=== PATIENT | male | born 1940 | race Caucasian/White ===

== ENCOUNTER 2017-02-10 12:13 | Inpatient (IN) | payer OTHER, MEDICARE ==
--- NOTE | 2017-02-10 12:39 | CPEKG ---
Heart Rate: 73 RR Interval: 822 P-R Interval: 192 QRSD Interval: 86 QT Interval: 400 QTC Interval: 441 P [place]: 10 QRS [place]: -27 T Wave [place]: 133 EKG Severity - ABNORMAL ECG - EKG Impression: SINUS RHYTHM EKG Impression: BORDERLINE LEFT AXIS DEVIATION EKG Impression: ABNRM R PROG, CONSIDER ASMI OR LEAD PLACEMENT Electronically Signed By: Veronica Banerjee 10-Feb-2017 13:57:35
[2017-02-10 12:50] LABS: % IMMATURE GRANULYOCYTES 0.4 % (0.0-1.1); ABSOLUTE IMMATURE GRANULOCYTES 0.02 10^3/uL (0.00-0.10); ADD DIFF? NO; ADD MORPH? NO; ADD SCAN? NO; ATYPICAL LYMPHOCYTE FLAG 0 (0-99); FRAGMENT RBC FLAG 0 (0-99); HEMATOCRIT 43.8 % (40.0-51.0); HEMOGLOBIN 14.5 g/dL (13.7-17.5); LEFT SHIFT FLG 0 (0-99); LIPEMIA HEMOLYSIS FLAG 80 (0-99); MEAN CELL HEMOGLOBIN 27.6 pg (27.9-34.1); MEAN CELL HEMOGLOBIN CONCENTR. 33.1 g/dL (32.4-36.7); MEAN CELL VOLUME 83.4 fL (81.5-99.8); MEAN PLATELET VOLUME 10.4 fL (8.7-11.7); PLATELET CLUMPS FLAG 10 (0-99); PLATELET COUNT 210 10^3/uL (150-400); RED BLOOD CELL COUNT 5.25 10^6/uL (4.40-6.38); RED CELL DISTRIBUTION WIDTH 14.5 % (11.5-15.2)
[2017-02-10 13:13] LABS: ANION GAP 13 mEq/L (8-16); CALCIUM 9.6 mg/dL (8.5-10.4); CARBON DIOXIDE 19 mEq/l (22-31); CHLORIDE 105 mEq/L (97-110); CREATININE 0.8 mg/dL (0.7-1.3); GLOMERULAR FILTRATION RATE > 60; GLUCOSE 246 mg/dL (70-100); SODIUM 137 mEq/L (134-144); SPECIMEN HEMOLYSIS 111
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
--- NOTE | 2017-02-10 14:42 | CPEKG ---
Heart Rate: 71 RR Interval: 845 P-R Interval: 184 QRSD Interval: 94 QT Interval: 396 QTC Interval: 431 P [place]: 13 QRS [place]: -38 T Wave [place]: 120 EKG Severity - ABNORMAL ECG - EKG Impression: SINUS RHYTHM EKG Impression: PROBABLE INFERIOR INFARCT, OLD EKG Impression: ANTERIOR INFARCT, OLD EKG Impression: Resolution of ventricular ectopy since February 10, 2017, 14:36 Electronically Signed By: Dom Lebron 12-Feb-2017 17:48:40
[2017-02-10] MEDS ORDERED: ACETAMINOPHEN 325 MG TAB PO PRN (16:38)
[2017-02-10] MEDS ORDERED: ONDANSETRON 4 MG/2 ML VIAL IVP PRN (16:38)
[2017-02-10] MEDS ORDERED: ONDANSETRON DISINTEGRATING 4 MG TAB PO PRN (16:38)
[2017-02-10] MEDS ORDERED: D50W 25 GM/50 ML SYR IVP PRN (17:18)
[2017-02-10] MEDS: LOSARTAN/HCTZ 50/12.5 1 TAB PO SCH (17:24)
[2017-02-10] MEDS: glipiZIDE XL 5 MG TAB PO SCH (17:25)
[2017-02-10] MEDS: PIOGLITAZONE HCL 15 MG TAB PO SCH (17:25)
[2017-02-10] MEDS: ATORVASTATIN CALCIUM 20 MG TAB PO SCH (17:26)
[2017-02-10] MEDS: SOTALOL HCL 80 MG TAB PO SCH (17:26)
[2017-02-10] MEDS: ASPIRIN EC 81 MG TAB PO SCH (17:27)
[2017-02-10] MEDS ORDERED: NS 1,000 ML IV SCH (17:30)
[2017-02-10] MEDS: INSULIN LISPRO 100 UNIT/ML SC SCH (18:09)
--- NOTE | 2017-02-10 18:14 | GHP ---
[f rep st] HISTORY AND PHYSICAL DATE OF ADMISSION: 02/10/2017 HISTORY OF PRESENT ILLNESS: The patient is a pleasant 76-year-old gentleman with a history of coron jourdan disease and CABG 12 years ago, presents with a week of generalized symptoms. He states his bloo d sugar has been running 120s, higher than usual. He has felt poor with low energy. He has also no chadwick that his blood pressure has been inching up. He has not had palpitations. He checks his blood pressures and they have been higher than usual. He has been taking his medications. He has not had dietary indiscretion. He has a history of osteo myelitis of his left elbow and it has not been draining. There has been no redness or swelling. He has not had muscle aches. He has not had diarrhea, nausea or vomiting. He has had good p.o. intak e. He has not been smoking cigarettes, drinking alcohol or using drugs. He has not had falls. He has not had confusion. He is not taking over the counter medicines. He is not having typical angin al symptoms, nor is he having heart failure symptoms such as PND, orthopnea or lower extremity edema . His expressed some concern that he could have blocked bypass vessels, as his brothers all had b locked bypass vessels after 12 years or so. REVIEW OF SYSTEMS: Complete 10-point review of systems conducted was negative, except as noted in t he HPI. PAST MEDICAL HISTORY: 1. Coronary disease status post 6 vessel bypass in 2004. 2. Diabetes. 3. Postoperative atrial fibrillation, currently on sotalol. 4. Hyperlipidemia. 5. Left elbow pseudogout. 6. Left elbow infection requiring 4 weeks of antibiotics in 2012. ALLERGIES: Piroxicam. MEDICATIONS: Metformin 15 XR, glipizide, Ambien, sotalol, pioglitazone, losartan/hydrochlorothiazid e, Lantus 8 units, atorvastatin, aspirin. SOCIAL HISTORY: Lives with his in [place]. Notes minimal tobacco or alcohol. FAMILY HISTORY: Notable for coronary disease. PHYSICAL EXAM: VITAL SIGNS: Temperature 37, blood pressure 182/86, pulse 83, breathing 18 per jo te, 97% on room air. GENERAL: No acute distress. HEENT: Sclerae anicteric. Oropharynx clear. M ucous membranes are moist. NECK: Supple, without lymphadenopathy or JVD. LUNGS: Clear to auscult ation bilaterally. HEART: S1, S2. ABDOMEN: Soft, nontender, nondistended. EXTREMITIES: His low er extremities are without edema. His left upper extremity, he has evidence of prior surgeries, but there is no fluctuance, erythema, warmth or drainage. NEUROLOGIC: Nonfocal. SKIN: Without rash. LABORATORY DATA: White count 5.3, hematocrit 44, platelets are 210,000. Sodium 137, potassium is 5 , chloride is 105, bicarb is 19, BUN 27, creatinine 0.8, glucose 246. Troponin 0.016. IMAGING: Chest x-ray interpreted by me and reviewed with Dr. Ozzie Corado, shows linear atelectasis wh ich is felt to be most consistent with old scar in the left lower lobe. Otherwise, no cardiomegaly or evidence of heart failure or pneumonia. EKG is interpreted by me to show sinus at 71 with left a xis deviation, normal intervals with T-wave inversion in 1 and L, but not in V5 or V6. He received 2 EKGs here and they are similar with regard to T-wave inversion and other ST or T-wave changes. I have discussed the case Dr. Shemar Rodríguez and Dr. Ozzie Corado. ASSESSMENT AND PLAN: This is a 76-year-old gentle with coronary disease who presents with generaliz ed symptoms. 1. Weakness and fatigue with hyperglycemia. The differential is broad and includes MD, heart failu re, smoldering infection. To that end, I will check a CK to evaluate for statin toxicity. ESR to e valuate for osteomyelitis of the elbow. We will cycle his troponins and perform an echocardiogram. I will give him a liter of IV fluids for his modestly elevated BUN. 2. Coronary disease. We will cycle his troponins and perform echocardiogram. This is perhaps cons istent with heart failure, but he does not have objective signs of that now. His BNP is notably 335 with no prior for comparison. 3. Question pneumonia. I believe his chest x-ray findings are consistent with scar, not pneumonia. Will not give antibiotics. 4. Hypertension. He is hypertensive here. The neuropsychology medical consultant gave him 5 mg of amlodipine i n the emergency department. 5. Diabetes. He is hyperglycemic here. Will check a hemoglobin A1c. Will give him some lispro sl iding scale. I do believe he is clinically dry on the basis of his osmotic diuresis from his blood sugars. DISPOSITION: Inpatient status. Follow on telemetry. /[id number]/MODL
[2017-02-10 18:17] LABS: TROPONIN I < 0.012 ng/mL (0-0.034)
[2017-02-10 20:06] LABS: SEDIMENTATION RATE 7 MM/HR (0-20)
--- NOTE | 2017-02-10 22:03 | GCON ---
[f rep st] CONSULTATION REFERRING PHYSICIAN: Veronica Banerjee MD REASON FOR CONSULTATION: This is a 76-year-old patient with past medical history of insulin-dependent diabetes, coronary artery disease, status post six- vessel bypass in 2004, hypertension, who presents today after feeling poorly. HISTORY OF PRESENT ILLNESS: This 76-year-old male with past medical history of coronary artery disease, dyslipidemia, hypertension, status post bypass surgery , who comes in for evaluation of elevated blood sugar, elevated blood pressure, some fatigue and lightheadedness. The patient mentions that he has had bypass surgery in 2004. He presents today after one week of feeling poorly, with loss of blood sugar control. He also mentions that his blood pressure has been running high, and he is feeling tired and fatigued, which is very unusual for him. He has been feeling lightheaded, which is unusual for him. He notes that he does not have chest pain, but even prior to needing bypass surgery, he did not have chest pain. He denies any fever. He has chronic cough that has not changed. He denies any nausea, vomiting, abdominal pain, diarrhea. No urinary problems. 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 This had occurred in 2012. He has a chronic opening in the skin of his left elbow that occasionally drains. He has been diagnosed with pseudogout. The last time he had seen Dr. Ramirez, who is his psychiatric orderly, was in 2013 when he was cleared for back surgery. At that point in time, Dr. Ramirez noted that he does not have any arrhythmia issue or any ischemia. PAST MEDICAL HISTORY: Coronary artery disease, status post bypass surgery, with MCCULLOUGH to LAD, SVG to first diagonal, sequential SVG to ramus intermedius and first obtuse marginal, SVG to RCA, and right PDA. Last ejection fraction was checked in 2007 when it was normal, with mild anterior and lateral hypokinesis, left atrial enlargement. Last ischemia workup was in 2004 prior to his bypass surgery, which interestingly showed no evidence of stress-induced ischemia, with preserved LV function, with mild wall motion abnormality. MEDICATIONS: As per the report from 2014, Aleve, Ambien, Centrum Silver, Glucotrol, guaifenesin, hydrocodone, Lantus, low-dose aspirin, losartan, metformin, pioglitazone, simvastatin, and sotalol. Home medications today are as follows: Atorvastatin, glipizide, insulin, losartan, metformin, pioglitazone, sotalol, and Ambien. ALLERGIES: Piroxicam. SOCIAL HISTORY: Nonsmoker. No alcohol use. Retired. REVIEW OF SYSTEMS: Other than above, is negative. PHYSICAL EXAMINATION: VITAL SIGNS: Blood pressure 182/86, pulse of 83, respiratory rate 16. GENERAL APPEARANCE: Alert. EYES: Pupils equal, round. No conjunctival injection. No discharge. Anicteric. MOUTH: Mucous membranes moist. No oropharyngeal erythema or edema. NECK: No lymphadenopathy. Neck is supple. No JVD. RESPIRATORY: Good air entry, bilaterally equal. No rales , rhonchi, or rub noted. CARDIOVASCULAR: S1, S2 regular. No S3, no murmurs noted. Occasional irregularity noted. GI: Abdomen is soft and nontender. No masses or organomegaly. Bowel sounds normal. SKIN: Warm and dry. No rashes on exposed skin. Normal color. BACK: Nontender to palpation. EXTREMITIES: No lower extremity edema. No calf tenderness. NEUROLOGICAL: Grossly intact. LABORATORY DATA: A 12-lead EKG shows inferior wall PA, as well as anterior wall PA. Creatinine is 0.8. White count is normal. Hemoglobin is normal. Troponin is 0.016. IMPRESSION AND PLAN: This is a 76-year-old male with known coronary artery disease, hypertension, diabetes, dyslipidemia, who comes in for lightheadedness and mild shortness of breath, increasing fatigue, and not feeling well. The patient and the are insistent that there is some cardiac abnormality going on. The EKG shows inferior wall, as well as anterior wall PA, and frequent PVCs are noted on panel monitor. Coronary artery disease. It is reasonable to assess the patient with stress test, and I have discussed this with the patient and the . However, they are insistent on consideration for cardiac catheterization. I have told them that I will discuss it with Dr. Ramirez, and let them make their choice. We will continue to cycle the troponins. We will check an echocardiogram. Hypertension. The current regimen does not seem to be adequate, and hence amlodipine will be added to the patient's regimen. The patient has not had an echocardiogram in many years, and, hence, we will perform the echocardiogram during this admission. I have explained this to the patient and the family, and they are agreeable to it, other than consideration for coronary angiogram. I will leave it up to Dr. Ramirez and the family to decide on this. Thank you for letting me participate in the patient's care. Feel free to call me for questions. /[id number]/MODL MTDD
[2017-02-10] MEDS: ZOLPIDEM TARTRATE 5 MG TAB PO SCH (22:23)
[2017-02-11 03:36] LABS: HEMOGLOBIN A1C 6.9 % (4.0-6.0)
[2017-02-11 05:46] LABS: ANION GAP 7 mEq/L (8-16); CALCIUM 9.4 mg/dL (8.5-10.4); CARBON DIOXIDE 27 mEq/l (22-31); CHLORIDE 107 mEq/L (97-110); CREATININE 0.8 mg/dL (0.7-1.3); GLOMERULAR FILTRATION RATE > 60; GLUCOSE 123 mg/dL (70-100); POTASSIUM 3.9 mEq/L (3.5-5.2); SODIUM 141 mEq/L (134-144)
[2017-02-11 05:53] LABS: % IMMATURE GRANULYOCYTES 0.2 % (0.0-1.1); ABSOLUTE IMMATURE GRANULOCYTES 0.01 10^3/uL (0.00-0.10); ADD DIFF? NO; ADD MORPH? NO; ADD SCAN? NO; ATYPICAL LYMPHOCYTE FLAG 0 (0-99); FRAGMENT RBC FLAG 0 (0-99); HEMATOCRIT 42.2 % (40.0-51.0); HEMOGLOBIN 13.9 g/dL (13.7-17.5); LEFT SHIFT FLG 0 (0-99); LIPEMIA HEMOLYSIS FLAG 80 (0-99); MEAN CELL HEMOGLOBIN 28.1 pg (27.9-34.1); MEAN CELL HEMOGLOBIN CONCENTR. 32.9 g/dL (32.4-36.7); MEAN CELL VOLUME 85.4 fL (81.5-99.8); MEAN PLATELET VOLUME 10.4 fL (8.7-11.7); PLATELET CLUMPS FLAG 10 (0-99); PLATELET COUNT 184 10^3/uL (150-400); RED BLOOD CELL COUNT 4.94 10^6/uL (4.40-6.38); RED CELL DISTRIBUTION WIDTH 14.6 % (11.5-15.2)
[2017-02-11] MEDS: ENOXAPARIN 40 MG/0.4 ML SYR SC SCH (08:13)
[2017-02-11] MEDS: INSULIN LISPRO 100 UNIT/ML SC SCH ×3 (08:17→17:54)
[2017-02-11] MEDS: INSULIN GLARGINE 100 UNITS/ML SYRINGE SC SCH (08:18)
[2017-02-11] MEDS ORDERED: Herbals/Supplements -Info Only PO SCH (09:00)
--- NOTE | 2017-02-11 10:38 | ECHO ---
[id number] + + [address] : : [place] [address] : : [phone] + Adult Echocardiographic Report + ----+ :Name: Savannah TORRES Ada Date: 02/11/2017 09:12 AM : : Hospital Admission Number: [id number] Location: 204: :: 1940 Gender: Male Height: 69 in : :Age: 76 yrs Race: WH Weight: 168 lb : :Reason For Study: Lightheadedness : : BSA: 1.9 meters2 : :History: CABG : + ----+ MMode/2D Measurements \T\ Calculations IVSd: 1.1 cm LVIDd: 4.4 cm FS: 29.6 % Ao root diam: LVPWd: 1.1 cm LVIDs: 3.1 cm EDV(Teich): 2.8 cm 86.5 ml LA dimension: ESV(Teich): 5.0 cm 37.3 ml EF(Teich): 56.9 % LVLd ap4: 8.5 cm SV(MOD-sp4): EDV(MOD-sp4): 54.0 ml 81.0 ml LVLs ap4: 7.3 cm ESV(MOD-sp4): 27.0 ml EF(MOD-sp4): 66.7 % Normal Measurement Values: + + :LVIDd (3.5-5.7cm) IVSd (0.6-1.1cm) LVPWd (0.6-1.1cm) Aortic Root (2.0-3.7cm)Left Atrium (1.5-4.0cm): :LV Vol(d) (76-115ml) LV Vol(s) (29-48ml) Ejec Fraction (50-65%)PV Luis E (0.6- 1.2m/s) TV Luis E (0.4-1.0m/s) : :MV E Luis E (0.8-1.0m/s)MV A Luis E (0.3-1.0m/s)LVOT Luis E (0.7-1.2m/s) Asc Ao Luis E ( 0.9-1.8m/s) : + + Doppler Measurements \T\ Calculations MV E max luis e: 73.5 cm/sec Ao V2 max: 114.0 cm/sec MV A max luis e: 80.5 cm/sec Ao max P.2 mmHg MV E/A: 0.91 Left Ventricle The left ventricle is not well visualized. There is mild concentric left ventricular hypertrophy. Left ventricular systolic function is normal. Ejection Fraction = 60-65%. Right Ventricle The right ventricle is normal in size and function. Atria Borderline left atrial enlargement. Right atrial size is normal. The interatrial septum is intact with no evidence for an atrial septal defect. Mitral Valve There is mild mitral annular calcification. There is no evidence of mitral valve prolapse. There is no mitral valve stenosis. There is trace mitral regurgitation. Tricuspid Valve Normal tricuspid valve. Aortic Valve The aortic valve is trileaflet. The aortic valve opens well. Mild/moderate AV calcification. There is no aortic stenosis. There is no aortic insufficiency. Pulmonic Valve The pulmonic valve is normal in structure and function. Great Vessels The aortic root is normal size. Pericardium/Pleural There is no pericardial effusion. Conclusion A complete two-dimensional transthoracic echocardiogram was performed (2D, M-mode, Doppler and color flow Doppler). The study was technically difficult. Left ventricular systolic function is normal. There is mild concentric left ventricular hypertrophy. Ejection Fraction = 60-65%. The left ventricle is not well visualized. Borderline left atrial enlargement. There is mild mitral annular calcification. There is trace mitral regurgitation. Mild/moderate AV calcification. Final Reading Physician: Beau Barnhart signed on 02/11/2017 10:37 AM Ordering Physician: Matthew Frankel Performed By: Chrissie Alarcon, KENNEDI
--- NOTE | 2017-02-11 11:36 | SOAPPROG ---
PADMIN[facility] Progress Note Assessment/Plan: Assessment: 1. cad..s/p cabg 2005..recent "weakness and fatigue"..unclear etiology...will progress with nuclear tm ..no afib only pvc's 2. iddm ..creat 0.8 Plan:1. nuc tm hopefullly today 02/11/17 11:33 Subjective: pt is feeling better today...echo and trops negative for significant ischemia...pt had light lunch and no caffiene...will schedule nuc tm for later today Objective: Vital Signs Temp Pulse Resp BP Pulse Ox 36.8 C 71 22 H 144/78 H 91 L 02/11/17 07:54 02/11/17 07:54 02/11/17 07:54 02/11/17 07:54 02/11/17 07:54 Laboratory Results 02/11/17 05:30 02/11/17 05:30 02/10/17 02/11/17 02/12/17 05:59 05:59 05:59 Intake Total 925 Balance 925 Physical Exam - Physical Exam Respiratory: lungs clear Cardiac/Chest: regular rate, rhythm, No edema, No JVD ICD10 Worksheet Patient Problems: Problems Problem Status Onset Hyperglycemia due to type 2 diabetes mellitus Acute Hypertension Acute
--- NOTE | 2017-02-11 16:00 | CPEKG ---
Heart Rate: 70 RR Interval: 857 P-R Interval: 180 QRSD Interval: 82 QT Interval: 376 QTC Interval: 406 P [place]: 15 QRS [place]: -37 T Wave [place]: 122 EKG Severity - ABNORMAL ECG - EKG Impression: SINUS RHYTHM EKG Impression: VENTRICULAR BIGEMINY -- New since February 10, 2017, 12:38 EKG Impression: PROBABLE INFERIOR INFARCT, OLD EKG Impression: ANTERIOR INFARCT, OLD Electronically Signed By: Dom Lebron 12-Feb-2017 17:49:59
[2017-02-11] MEDS: HYDROCODONE/APAP 5/325 TAB PO PRN (17:13)
--- NOTE | 2017-02-11 17:17 | HOSPPROG ---
Hospitalist Progress Note Assessment/Plan: DIAGNOSES: -vague describe symptoms of not feeling right of uncertain etiology persists -Ruled out for ME -abnormal nuclear myocardial perfusion imaging with stress, with a history of bypass surgery 13 years ago and history of stents since then I have discussed the case in detail with the patient and his and with Dr. Roverto Nielsen. At this time as the patient and his were very concerned about the possibility of coronary disease causing his symptoms. Given that this symptom is an ongoing continuous symptom without any evidence of myocardial injury it seems unlikely that it is actually a coronary related injury. This being said it is a symptom that certainly could potentially be caused by ischemia and he does have some fairly old grafts by this time. Given the level of anxiety around this for the patient and his it is reasonable to consider angiography and Dr. Nielsen is recommending this. We will schedule this for tomorrow. He will be NPO after midnight tonight. He does have some hypertension and this is somewhat improved after addition of Norvasc and will continue to follow that. PLANS: -changed to inpatient as will be studying him here in the morning with angiography -Continue to follow cardiac rhythm and blood pressures very closely, continue Norvasc SUBJECTIVE: He continues to have a significant but very vaguely described symptom of of just not feeling right. He denies any shortness of breath or pain. He still is concerned that this could be a coronary or cardiac related symptoms. There been no palpitations or fevers and no other new symptoms. He is eating well. We did exercise him on treadmill stress test today and he did not have anginal symptoms during his stress test. OBJECTIVE Vitals reviewed: Some mild hypertension otherwise stable Medication Care Manager, my review: Sinus rhythm Exam: alert oriented skin warm dry color ok resps not labored lungs clear BSs heart regular abd soft nondistended nontender, bowel sounds present limbs warm, no edema iv site ok Laboratory data: His troponins have all been normal Sedimentation rate normal All other labs without significant concerning abnormality Echocardiogram I reviewed with Dr. Roverto Nielsen showing good left ventricular wall motion good ejection fraction no significant valvular abnormalities no pulmonary hypertension Exercise treadmill stress test he went to 6 minutes with no angina or ischemic EKG changes, no concerning blood pressure or pulse changes or recovery, and his images were performed. These show some areas of reversible ischemia in septum lateral wall and inferior wall. There is possible old infarct within these areas of reversible ischemia. These could potentially represent old infarct with some brandyn-infarct watershed tissue or even graft implant areas. Objective: Vital Signs Temp Pulse Resp BP Pulse Ox 36.7 C 79 14 139/66 H 90 L 02/11/17 15:30 02/11/17 15:30 02/11/17 15:30 02/11/17 15:30 02/11/17 15:30 Laboratory Results 02/11/17 05:30 02/11/17 05:30 02/10/17 02/11/17 02/12/17 06:59 06:59 06:59 Intake Total 925 Balance 925 ICD10 Worksheet Patient Problems: Problems Problem Status Onset Hyperglycemia due to type 2 diabetes mellitus Acute Hypertension Acute
[2017-02-11] MEDS: LOSARTAN/HCTZ 50/12.5 1 TAB PO SCH (17:49)
[2017-02-11] MEDS: ASPIRIN EC 81 MG TAB PO SCH (17:49)
[2017-02-11] MEDS: ATORVASTATIN CALCIUM 20 MG TAB PO SCH (17:50)
[2017-02-11] MEDS: PIOGLITAZONE HCL 15 MG TAB PO SCH (17:50)
[2017-02-11] MEDS: glipiZIDE XL 5 MG TAB PO SCH (17:50)
[2017-02-11] MEDS: SOTALOL HCL 80 MG TAB PO SCH (17:50)
[2017-02-11] MEDS: ZOLPIDEM TARTRATE 5 MG TAB PO SCH (21:55)
[2017-02-12 03:40] LABS: % IMMATURE GRANULYOCYTES 0.2 % (0.0-1.1); ABSOLUTE IMMATURE GRANULOCYTES 0.01 10^3/uL (0.00-0.10); ADD DIFF? NO; ADD MORPH? NO; ADD SCAN? NO; ATYPICAL LYMPHOCYTE FLAG 0 (0-99); FRAGMENT RBC FLAG 0 (0-99); HEMATOCRIT 40.5 % (40.0-51.0); HEMOGLOBIN 13.2 g/dL (13.7-17.5); LEFT SHIFT FLG 0 (0-99); LIPEMIA HEMOLYSIS FLAG 80 (0-99); MEAN CELL HEMOGLOBIN 27.7 pg (27.9-34.1); MEAN CELL HEMOGLOBIN CONCENTR. 32.6 g/dL (32.4-36.7); MEAN CELL VOLUME 84.9 fL (81.5-99.8); MEAN PLATELET VOLUME 10.2 fL (8.7-11.7); PLATELET CLUMPS FLAG 0 (0-99); PLATELET COUNT 179 10^3/uL (150-400); RED BLOOD CELL COUNT 4.77 10^6/uL (4.40-6.38); RED CELL DISTRIBUTION WIDTH 14.4 % (11.5-15.2)
[2017-02-12 04:13] LABS: ANION GAP 10 mEq/L (8-16); CALCIUM 9.3 mg/dL (8.5-10.4); CARBON DIOXIDE 26 mEq/l (22-31); CHLORIDE 105 mEq/L (97-110); CREATININE 0.8 mg/dL (0.7-1.3); GLOMERULAR FILTRATION RATE > 60; GLUCOSE 100 mg/dL (70-100); POTASSIUM 4.1 mEq/L (3.5-5.2); SODIUM 141 mEq/L (134-144)
[2017-02-12] MEDS: INSULIN LISPRO 100 UNIT/ML SC SCH ×3 (07:07→18:02)
[2017-02-12] MEDS: ENOXAPARIN 40 MG/0.4 ML SYR SC SCH (08:16)
[2017-02-12] MEDS: INSULIN GLARGINE 100 UNITS/ML SYRINGE SC SCH (08:46)
[2017-02-12] MEDS: HYDROCODONE/APAP 5/325 TAB PO PRN ×2 (10:13→21:28)
[2017-02-12] MEDS ORDERED: DIAZEPAM 5 MG TAB PO ONE (11:35)
[2017-02-12] MEDS ORDERED: FAMOTIDINE 20 MG TAB PO ONE (11:35)
[2017-02-12] MEDS ORDERED: ASPIRIN EC 325 MG TAB PO ONE (11:35)
[2017-02-12] MEDS ORDERED: diphenhydrAMINE 25 MG CAP PO ONE (11:35)
[2017-02-12] MEDS ORDERED: NS 1,000 ML IV ONE (11:35)
[2017-02-12 11:50] LABS: APTT 35.4 SEC (23.0-38.0); PROTIME(PATIENT) 13.1 SEC (12.0-15.0)
[2017-02-12] MEDS ORDERED: LIDOCAINE 1% 30 ML SDV ONE (12:35)
[2017-02-12] MEDS ORDERED: fentaNYL 100 MCG/2 ML INJ ONE (12:35)
[2017-02-12] MEDS ORDERED: IOPAMIDOL (ISOVUE 370) 100 ML BTL IV ONE ×3 (12:36→13:46)
[2017-02-12] MEDS ORDERED: MIDAZOLAM 2 MG/2 ML VIAL ONE ×2 (12:36→13:55)
--- NOTE | 2017-02-12 15:13 | PDDXCAT ---
Diagnostic Cath Note - . Date: 02/12/17 Library Services Assistant: Morales High-risk criteria on non-invasive testing: stress-induced moderate-size multiple perfusion defects - Procedure Access: right groin Procedure: left heart catheterization, coronary angiography, left ventriculogram , vein graft injection, MCCULLOUGH injection - Materials Left Heart Cath size: 6F Left Heart Cath materials: standard multipack (JL4, JR4, pigtail), CLAUDIA - Findings-Left Heart Catheterization LM: 1.mild irregs LAD: 1. mid occl LCX: 1. mid occl RCA: 1. heavy calcification mid 75%..[id number]% rSV. svg to RI(50 -75%prox stenosis) and MOM(widely patent)..pt apparently had svg to rca and another to first diagonal..these were not ingaged or found by catheter or with aortic root injection..they were presumed to be occluded MCCULLOUGH: 1. widely patent to lad EDP: 1.<20 mmhg Wall motion: 1. lvef 55% no significant rwma Complications: none Estimated blood loss: <50ml Closure method: manual pressure Assessment: 1.three vessel cad with patent mccullough to lad and skip graft to ri and mom...rca lesion is unprotected and similar to film in 2005....consider future stenting of [place]leigh lesion ...will continue aggressive medical managment Plan: see above Patient Problems: Problems Problem Status Onset Hyperglycemia due to type 2 diabetes mellitus Acute Hypertension Acute
[2017-02-12] MEDS ORDERED: ATROPINE SULFATE 1 MG/10 ML SYR IVP PRN (15:27)
[2017-02-12] MEDS ORDERED: ONDANSETRON 4 MG/2 ML VIAL IVP PRN (15:27)
[2017-02-12] MEDS ORDERED: NITROGLYCERIN 0.4 MG BTL SL PRN (15:27)
[2017-02-12] MEDS ORDERED: OXYCODONE/APAP 5/325 TAB PO PRN (15:27)
--- NOTE | 2017-02-12 16:32 | HOSPPROG ---
Hospitalist Progress Note Assessment/Plan: DIAGNOSES: -vague describe symptoms of not feeling right of uncertain etiology persists -Ruled out for IA -abnormal nuclear myocardial perfusion imaging with stress, with a history of bypass surgery 13 years ago and history of stents since then -coronary angiography unchanged since 2003, with loss of 2 vein grafts and with some [place] coronary stenoses still present. I have discussed the case in detail with Dr. Roverto Nielsen today. He has not had any infarction or heart failure or arrhythmia at this time. His angiograms have not changed since 2003. His symptoms remain vague although slowly improving. The symptoms he describes could potentially fall within the realm of coronary artery ischemia, however they are really quite nonspecific and is very likely particularly with such prolonged symptom presentation that they are due to something else. At this time there will be no specific interventions taken. Will want to follow his symptoms over time and determine whether not it would be worth considering trying to open any of his grafts or stent the [place] coronary stenosis that is present. This is to be evaluated in the outpatient setting. His anatomy today was difficult for the angiography in knee ended up requiring a fairly large load of dye. Due to his diabetes Dr. Mercer would like to observe overnight to make sure that we do not end up with any renal injury. I will give him some IV hydration through the night and recheck the creatinine and urine output through the night. SUBJECTIVE: His presenting symptoms are slightly improved today, but remain as a vaguely described sense of not feeling well or not feeling right. Has not had any chest pain or shortness of breath or nausea. No fever symptoms and it review of systems done again today reveals no other new specific abnormalities. OBJECTIVE Vitals reviewed: Blood pressure is now better on the Norvasc, otherwise stable vitals Engraving Operator, my review: Sinus rhythm Exam: alert oriented skin warm dry color ok resps not labored lungs clear BSs heart regular abd soft nondistended nontender, bowel sounds present limbs warm, no edema iv site ok Laboratory data: His troponins have all been normal Sedimentation rate normal All other labs without significant concerning abnormality Coronary angiography shows loss of 2 vein graft as well as some of coronary stenosis, but these changes appear angiographically similar to 2004. Objective: Vital Signs Temp Pulse Resp BP Pulse Ox 36.4 C 74 16 143/81 H 94 02/12/17 16:00 02/12/17 16:00 02/12/17 16:00 02/12/17 16:00 02/12/17 16:00 Laboratory Results 02/12/17 03:15 02/12/17 03:15 02/11/17 02/12/17 02/13/17 06:59 06:59 06:59 Intake Total 925 300 Output Total 1450 Balance 925 -1150 PT 13.1 SEC (12.0-15.0) 02/12/17 11:30 INR 1.00 (0.83-1.16) 02/12/17 11:30 ICD10 Worksheet Patient Problems: Problems Problem Status Onset Hyperglycemia due to type 2 diabetes mellitus Acute Hypertension Acute
[2017-02-12] MEDS ORDERED: NS 1,000 ML IV SCH (16:45)
[2017-02-12] MEDS: PIOGLITAZONE HCL 15 MG TAB PO SCH (17:54)
[2017-02-12] MEDS: LOSARTAN/HCTZ 50/12.5 1 TAB PO SCH (17:54)
[2017-02-12] MEDS: SOTALOL HCL 80 MG TAB PO SCH (17:55)
[2017-02-12] MEDS: ASPIRIN EC 81 MG TAB PO SCH (17:55)
[2017-02-12] MEDS: ATORVASTATIN CALCIUM 20 MG TAB PO SCH (17:55)
[2017-02-12] MEDS: glipiZIDE XL 5 MG TAB PO SCH (17:55)
[2017-02-12] MEDS: ZOLPIDEM TARTRATE 5 MG TAB PO SCH (21:28)
[2017-02-13 04:19] VITALS: RESP 16
[2017-02-13] MEDS: HYDROCODONE/APAP 5/325 TAB PO PRN ×2 (04:21→10:38)
[2017-02-13 05:33] LABS: ANION GAP 11 mEq/L (8-16); CARBON DIOXIDE 23 mEq/l (22-31); CHLORIDE 103 mEq/L (97-110); CREATININE 0.9 mg/dL (0.7-1.3); GLOMERULAR FILTRATION RATE > 60; GLUCOSE 105 mg/dL (70-100); POTASSIUM 4.1 mEq/L (3.5-5.2); SODIUM 137 mEq/L (134-144)
[2017-02-13 07:41] VITALS: BP 142/75; PULSE 80; TEMP 98.8; O2SAT 90
[2017-02-13] MEDS: INSULIN LISPRO 100 UNIT/ML SC SCH ×2 (08:53→12:26)
[2017-02-13] MEDS: ENOXAPARIN 40 MG/0.4 ML SYR SC SCH (08:53)
[2017-02-13] MEDS: INSULIN GLARGINE 100 UNITS/ML SYRINGE SC SCH (08:55)
--- NOTE | 2017-02-13 10:15 | SOAPPROG ---
PADMINI Progress Note Assessment/Plan: Assessment: 1. cad..s/p cabg 2004..recent "weakness and fatigue"..unclear etiology...cath showed fairly stable findings..rca is the only truly unprotected myocardium but not clearly ischemic on nuclear tm...no recent AR and rca graft could have failed "years" ago..no cp or exertional dyspnea 2. iddm ..creat 0.9..good urine output post cath Plan:1. d/c home on current meds with f/u with dr cole...?rca stenting in the future or continue med management 02/11/17 11:33 02/13/17 10:10 02/13/17 10:15 Subjective: no cv c/o...went overf findings on cath with pt and ..many questions answered..for now continue med management and f/u with dr cole as out pt Objective: Vital Signs Temp Pulse Resp BP Pulse Ox 37.1 C 80 16 142/75 H 90 L 02/13/17 07:39 02/13/17 07:39 02/13/17 07:39 02/13/17 07:39 02/13/17 07:39 Laboratory Results 02/12/17 03:15 02/13/17 04:20 02/12/17 02/13/17 02/14/17 05:59 05:59 05:59 Intake Total 300 1070 Output Total 1450 1075 Balance -1150 -5 PT 13.1 SEC (12.0-15.0) 02/12/17 11:30 INR 1.00 (0.83-1.16) 02/12/17 11:30 Physical Exam - Physical Exam Respiratory: lungs clear Cardiac/Chest: regular rate, rhythm, No edema, No JVD Peripheral Pulses: 3+: carotid (R) (no bruit), carotid (L) (no bruit), femoral ( R) (normal post cath ecchymosis..no hematoma or pain), dorsalis-pedis (R) ICD10 Worksheet Patient Problems: Problems Problem Status Onset Hyperglycemia due to type 2 diabetes mellitus Acute Hypertension Acute
--- NOTE | 2017-02-13 10:17 | PDDCSUM ---
Discharge Summary Discharge Summary: DISCHARGE DIAGNOSES: -vague presenting symptom of "not feeling right"; etiology uncertain but symptoms resolving -history of coronary artery disease with bypass grafting, current angiography with no change since 2003 showing loss of 2 vein grafts and some persistent [place] vessel atherosclerosis -uncontrolled systolic hypertension CONSULTANTS: Dr. Roverto Nielsen PROCEDURES: Coronary angiography HOSPITAL COURSE SUMMARY: This patient presented with very vague symptoms of not feeling right. There was no discomfort or focality or other specific descriptors to help determine the nature of this symptom. The symptoms gradually disappeared here. At no time did he have angina or heart failure symptoms or arrhythmia or fever. Because of a history of coronary disease and bypass surgery approximately 13 years ago the patient underwent angiography which was unchanged since 2003. There loss of 2 of his 5 grafts, both vein grafts, and also some atherosclerosis of [place] vessels. As the patient had no angina no heart failure no arrhythmia it was elected not to proceed with any interventions and not to change medications at this time for his heart. Will follow up in the near future with the cardiology team in clinic to be sure that he is doing well from a cardiac standpoint. He did have some elevated blood pressures at as he arrived here and was started on some Norvasc which has reduced his blood pressures. MEDICATION CHANGES: Addition of Norvasc FOLLOW-UP PLAN: With Dr. Ramirez in clinic in 1-2 weeks Greater than 35 minutes bedside and care coordination time today
== END 2017-02-13 14:17 | disposition home or self-care (01) | DRG 287 ==
LOC: F2W 15:57
PROVIDERS: ADMIT Internal Medicine; ATTEND Internal Medicine
DX: I25.10 Atherosclerotic heart disease of native coronary artery without angina pectoris (principal); R53.83 Other fatigue; R53.1 Weakness; R94.39 Abnormal result of other cardiovascular function study; E78.5 Hyperlipidemia, unspecified; I10 Essential (primary) hypertension; E11.9 Type 2 diabetes mellitus without complications; Z95.1 Presence of aortocoronary bypass graft; Z79.84 Long term (current) use of oral hypoglycemic drugs; Z79.4 Long term (current) use of insulin
CPT/HCPCS: A9500; J1644; J1650; J1815; J2250; J3010; Q9967

== ENCOUNTER → 2019-03-24 | Outpatient (CLI) | payer OTHER, MEDICARE | LOC: FIMAGING 11:05 | PROVIDERS: ATTEND Internal Medicine | DX: R05 Cough (principal) ==